=== PATIENT | female | born 1970 | race African-American/Black ===

== ENCOUNTER → 2018-08-22 | Outpatient (CLI) | payer OTHER ==
--- NOTE | 2018-08-22 16:42 | RAD ---
Right foot, 3 views, 08/22/2018: HISTORY: Foot wound, pain, redness, possible foreign body There are mild degenerative changes at scattered interphalangeal joints and the first MTP joint. Moderate spurring is present the mid foot level. No fracture or dislocation is identified. No destructive bony lesion is seen. Radiopacities related to a bandage or sock are projected over the soft tissues. No definite radiopaque foreign body is identified within the soft tissues. IMPRESSION: 1. Moderate degenerative changes. 2. No acute bony abnormality is detected. Electronically signed by: Tamir Gonzalez MD (08/22/2018 4:39 PM) [facility]
== END | disposition home or self-care (01) ==
LOC: PMGWOUND 12:20
PROVIDERS: ATTEND Preventive Medicine Undersea and Hyperbaric Medicine
DX: L97.412 Non-pressure chronic ulcer of right heel and midfoot with fat layer exposed (principal); L89.613 Pressure ulcer of right heel, stage 3; L97.211 Non-pressure chronic ulcer of right calf limited to breakdown of skin; L97.221 Non-pressure chronic ulcer of left calf limited to breakdown of skin; I11.0 Hypertensive heart disease with heart failure; I50.30 Unspecified diastolic (congestive) heart failure; L84 Corns and callosities; I87.2 Venous insufficiency (chronic) (peripheral); J96.11 Chronic respiratory failure with hypoxia; E66.01 Morbid (severe) obesity due to excess calories; Z87.891 Personal history of nicotine dependence
CPT/HCPCS: 11042; 11045; 73630; 97597; 97598

== ENCOUNTER → 2018-08-30 | Outpatient (CLI) | payer OTHER | END | disposition home or self-care (01) | LOC: PMGWOUND 09:31 | PROVIDERS: ATTEND Emergency Medicine Undersea and Hyperbaric Medicine | DX: L97.211 Non-pressure chronic ulcer of right calf limited to breakdown of skin (principal); L97.221 Non-pressure chronic ulcer of left calf limited to breakdown of skin; L89.613 Pressure ulcer of right heel, stage 3; L97.411 Non-pressure chronic ulcer of right heel and midfoot limited to breakdown of skin; I11.0 Hypertensive heart disease with heart failure; I50.30 Unspecified diastolic (congestive) heart failure; L84 Corns and callosities; I87.2 Venous insufficiency (chronic) (peripheral); J96.11 Chronic respiratory failure with hypoxia; E66.01 Morbid (severe) obesity due to excess calories; Z68.44 Body mass index [BMI] 60.0-69.9, adult; Z87.891 Personal history of nicotine dependence | CPT/HCPCS: 99215; G0463 ==

== ENCOUNTER → 2018-09-19 | Outpatient (CLI) | payer OTHER | END | disposition home or self-care (01) | LOC: PMGWOUND 08:27 | PROVIDERS: ATTEND Preventive Medicine Undersea and Hyperbaric Medicine | DX: L97.211 Non-pressure chronic ulcer of right calf limited to breakdown of skin (principal); L97.221 Non-pressure chronic ulcer of left calf limited to breakdown of skin; I11.0 Hypertensive heart disease with heart failure; I50.30 Unspecified diastolic (congestive) heart failure; L84 Corns and callosities; I87.2 Venous insufficiency (chronic) (peripheral); E66.01 Morbid (severe) obesity due to excess calories; Z68.44 Body mass index [BMI] 60.0-69.9, adult; Z87.891 Personal history of nicotine dependence | CPT/HCPCS: 99214; G0463 ==

== ENCOUNTER → 2018-09-27 | Outpatient (CLI) | payer OTHER ==
--- NOTE | 2018-09-27 13:52 | RAD ---
Indication: Bilateral nonhealing wounds distal calf. TECHNIQUE: Grayscale, color Doppler and spectral waveform images of the bilateral lower activity superficial veins COMPARISON: None FINDINGS: Limited exam due to body habitus. Right side: The diameter of the right great saphenous vein at saphenofemoral junction measures 8.5 mm. The proximal great saphenous vein measures 5.6 mm in diameter. The diameter of the great saphenous vein in the distal calf measures 2.5 mm. The distal great saphenous vein in the thigh and in the proximal and mid calf calf is not visualized. No reflux is identified. Small saphenous vein is not identified. Left side: The diameter of the great saphenous vein at the saphenofemoral junction measures 9.4 mm. The diameter of the great saphenous vein in the proximal segment measures 5.5 mm. The mid and distal segments of the great saphenous vein in the thigh and in the calf are not visualized. Small saphenous vein is not visualized. IMPRESSION: 1. Significantly limited exam due to body habitus. Great saphenous vein is not visualized bilaterally in its entirety. The visualized segments demonstrate no reflux. Electronically signed by: Douglas Romo DO (09/27/2018 1:49 PM) [facility]
== END | disposition home or self-care (01) ==
LOC: US 10:54
PROVIDERS: ATTEND Preventive Medicine Undersea and Hyperbaric Medicine
DX: L97.211 Non-pressure chronic ulcer of right calf limited to breakdown of skin (principal); L97.221 Non-pressure chronic ulcer of left calf limited to breakdown of skin
CPT/HCPCS: 93970

== ENCOUNTER → 2018-10-03 | Outpatient (CLI) | payer OTHER | END | disposition home or self-care (01) | LOC: PMGWOUND 08:48 | PROVIDERS: ATTEND Preventive Medicine Undersea and Hyperbaric Medicine | DX: L97.211 Non-pressure chronic ulcer of right calf limited to breakdown of skin (principal); L97.221 Non-pressure chronic ulcer of left calf limited to breakdown of skin; L89.613 Pressure ulcer of right heel, stage 3; I87.2 Venous insufficiency (chronic) (peripheral); I11.0 Hypertensive heart disease with heart failure; I50.30 Unspecified diastolic (congestive) heart failure; L84 Corns and callosities; J96.11 Chronic respiratory failure with hypoxia; E66.01 Morbid (severe) obesity due to excess calories; Z68.44 Body mass index [BMI] 60.0-69.9, adult; Z87.891 Personal history of nicotine dependence | CPT/HCPCS: 99215; G0463 ==